=== PATIENT | female | born 1970 | race Caucasian/White ===

== ENCOUNTER → 2017-06-28 | Outpatient (CLI) | payer OTHER ==
[~2017-06-28] MED LIST: BUPR150T8 PO; LISI-170 PO
[2017-06-28 16:18] LABS: HEMATOCRIT 40.5 % (34.6-47.8); HEMOGLOBIN 13.6 g/dL (11.7-16.4); WHITE BLOOD COUNT 9.6 x10^3/uL (3.4-10)
[2017-06-28 16:23] LABS: ASPARTATE AMINO TRANSFERASE 14 U/L (15-37); BLOOD UREA NITROGEN 10 mg/dL (7-18)
[2017-06-28 16:43] LABS: HIV 1&2 ANTIBODY SCREEN Nonreactive (Nonreactive); HIV-1 p24 ANTIGEN Nonreactive (Nonreactive)
== END | disposition home or self-care (01) ==
LOC: STAR 15:04
PROVIDERS: ATTEND Orthopaedic Surgery
DX: Z01.818 Encounter for other preprocedural examination (principal); Q65.89 Other specified congenital deformities of hip
CPT/HCPCS: 36415; 80053; 83036; 85025; 85610; 85730; 86703; 87081; 87147; 87899; 93005; G0435

== ENCOUNTER 2017-07-03 05:24 | Inpatient (IN) | payer OTHER ==
[~2017-07-03] VITALS: Ht 160 cm; Wt 95.2 kg
[2017-07-03] MEDS ORDERED: LACTATED RINGERS 1,000 ML IV SCH (06:09)
[2017-07-03] MEDS ORDERED: VANCOMYCIN PER PHARMACY MC STA (06:18)
[2017-07-03 06:21] LABS: HCG UR LOT HCG706132
[2017-07-03 06:23] LABS: HCG UR OBC PASS
[2017-07-03] MEDS ORDERED: GABAPENTIN 300 MG CAPSULE ONE (06:26)
[2017-07-03] MEDS ORDERED: ACETAMINOPHEN 500 MG TABLET ONE (06:26)
[2017-07-03] MEDS ORDERED: GABAPENTIN 300 MG CAPSULE PO ONE (06:30)
[2017-07-03] MEDS ORDERED: ACETAMINOPHEN 500 MG TABLET PO ONE (06:30)
[2017-07-03] MEDS ORDERED: VANCOMYCIN 1,400 MG in SODIUM CHLORIDE 0.9% 250 ML IV ONE (06:30)
[2017-07-03] MEDS ORDERED: KETOROLAC 60 MG/2 ML ONE ×2 (06:41→06:46)
[2017-07-03] MEDS ORDERED: TRANEXAMIC ACID 100 MG/ML, 10ML ONE ×4 (06:41)
[2017-07-03] MEDS ORDERED: ROPIvacaine/PF 0.2%, 20 ML ONE ×2 (06:42→06:46)
[2017-07-03] MEDS ORDERED: EPINEPHRINE 1 MG/ML, 1ML ONE ×2 (06:42→06:46)
[2017-07-03] MEDS ORDERED: SODIUM CHLORIDE 0.9% 0 ML ONE (06:42)
[2017-07-03] MEDS ORDERED: OxyconTIN ER 10 MG TAB.ER ONE (06:42)
[2017-07-03] MEDS ORDERED: SODIUM CHLORIDE 0.9% 100 ML ONE (06:46)
[2017-07-03 06:49] VITALS: BP 143/91
[2017-07-03] MEDS ORDERED: OxyconTIN ER 10 MG TAB.ER PO ONE (07:00)
[2017-07-03] MEDS ORDERED: MIDAZOLAM 1 MG/ML, 2ML ONE (07:21)
[2017-07-03] MEDS ORDERED: FENTANYL PF 100 MCG/2ML ONE ×2 (07:22)
[2017-07-03] MEDS ORDERED: HYDROmorphone 1 MG/ML, 1ML IV PRN ×2 (07:30→08:30)
[2017-07-03] MEDS ORDERED: ALUMINUM/MAG/SIMETHICONE 30 ML UDC PO PRN (07:30)
[2017-07-03] MEDS ORDERED: DIAZEPAM 5 MG TABLET PO PRN (07:30)
[2017-07-03] MEDS ORDERED: DIPHENHYDRAMINE 25 MG CAPSULE PO PRN (07:30)
[2017-07-03] MEDS ORDERED: SENNA/DOCUSATE TABLET PO PRN (07:30)
[2017-07-03] MEDS ORDERED: ONDANSETRON 2MG/ML, 2ML IV PRN (07:30)
[2017-07-03] MEDS ORDERED: ACETAMINOPHEN 325 MG TABLET PO PRN (07:30)
[2017-07-03] MEDS ORDERED: MAGNESIUM HYDROXIDE 8%, 30ML UDC PO PRN (07:30)
[2017-07-03] MEDS ORDERED: OXYcodone IR 5MG TABLET PO PRN (07:30)
[2017-07-03] MEDS ORDERED: ONDANSETRON 4 MG TABLET PO PRN (07:30)
[2017-07-03] MEDS ORDERED: SCOPOLAMINE PATCH, 1.5MG PATCH.TD72 TD ONE ×2 (07:32→07:58)
[2017-07-03] MEDS ORDERED: ONDANSETRON 2MG/ML, 2ML ONE (07:34)
[2017-07-03] MEDS ORDERED: DEXAMETHASONE 4 MG/ML, 1ML ONE (07:34)
[2017-07-03] MEDS ORDERED: NEOSTIGMINE 1 MG/ML, 10ML ONE (07:34)
[2017-07-03] MEDS ORDERED: PROPOFOL 10 MG/ML, 20ML ONE (07:34)
[2017-07-03] MEDS ORDERED: CEFAZOLIN 1,000 MG ONE (07:34)
[2017-07-03] MEDS ORDERED: ROCURONIUM 10 MG/ML,10ML ONE (07:34)
[2017-07-03] MEDS ORDERED: GLYCOPYRROLATE 0.4 MG/2 ML, 2ML ONE (07:34)
[2017-07-03] MEDS ORDERED: HYDROmorphone 2 MG/ML, 1ML ONE (08:08)
[2017-07-03] MEDS ORDERED: OXYcodone 5 MG/5 ML ORAL.SOL UDC PO PRN (08:30)
[2017-07-03] MEDS ORDERED: ALBUTEROL SULFATE 2.5 MG/3 ML NPPB PRN (08:30)
[2017-07-03] MEDS ORDERED: DIAZEPAM 5 MG/ML, 2ML IVPush PRN (08:30)
[2017-07-03] MEDS ORDERED: hydrALAzine 20 MG/ML, 1ML IV PRN (08:30)
[2017-07-03] MEDS ORDERED: MIDAZOLAM 1 MG/ML, 2ML IV PRN (08:30)
[2017-07-03] MEDS ORDERED: HYDROcodone/APAP 7.5-325MG/15ML UDC PO PRN (08:30)
[2017-07-03] MEDS ORDERED: FENTANYL PF 100 MCG/2ML IV PRN (08:30)
[2017-07-03] MEDS ORDERED: ONDANSETRON 2MG/ML, 2ML IVPush PRN (08:30)
[2017-07-03] MEDS ORDERED: EPHEDRINE 50 MG/ML, 1ML IVPush PRN (08:30)
[2017-07-03] MEDS ORDERED: LABETALOL 5MG/ML, 20ML IV PRN (08:30)
[2017-07-03] MEDS ORDERED: METOPROLOL 1 MG/ML, 5ML IV PRN (08:30)
[2017-07-03] MEDS ORDERED: PROMETHAZINE 25 MG/ML, 1ML IV PRN (08:30)
[2017-07-03] MEDS ORDERED: MEPERIDINE/PF 25MG/0.5ML IVPush PRN (08:30)
[2017-07-03] MEDS ORDERED: TRANEXAMIC ACID 1,000 MG in SODIUM CHLORIDE 0.9% 100 ML IVPB ONE (09:30)
[2017-07-03] MEDS ORDERED: OXYcodone 5 MG/5 ML ORAL.SOL UDC ONE (10:41)
[2017-07-03 11:00] VITALS: BP 110/68
[2017-07-03] MEDS ORDERED: D5%-0.45NACL+KCL 20MEQ 1,000 ML IV SCH (11:30)
[2017-07-03] MEDS ORDERED: TAMSULOSIN 0.4 MG CAP.ER.24H PO SCH (11:30)
[2017-07-03] MEDS ORDERED: DOCUSATE 100 MG CAPSULE PO SCH (11:30)
[2017-07-03] MEDS ORDERED: FLU VACC QS2017-18 (36MOS+) UP/PF 0.5 ML IM-VACC ONE (12:00)
[2017-07-03 13:07] VITALS: BP 113/77
[2017-07-03] MEDS ORDERED: CEFAZOLIN PMX 1GM/50ML 50 ML IVPB SCH (14:00)
[2017-07-03 17:14] VITALS: BP 108/70
[2017-07-03] MEDS ORDERED: ASPI-621 PO (17:19)
[2017-07-03] MEDS ORDERED: DOCU-131 PO (17:20)
[2017-07-03] MEDS ORDERED: ONDA4TAB7 PO (17:21)
[2017-07-03] MEDS ORDERED: TRAM50TA2 PO (17:23)
[2017-07-03] MEDS ORDERED: CELE100C PO (17:24)
[2017-07-03] MEDS ORDERED: DIAZ5TAB PO (17:25)
[2017-07-03] MEDS ORDERED: OXYC5CAP2 PO (18:00)
[2017-07-03] MEDS ORDERED: ASPIRIN 81 MG TABLET EC PO SCH (18:00)
[2017-07-03] MEDS ORDERED: LISINOPRIL 20 MG TABLET PO SCH (21:00)
[2017-07-03] MEDS ORDERED: BUPROPION SR 150 MG TABLET PO SCH (21:00)
[2017-07-04] MEDS ORDERED: DEXAMETHASONE 4 MG/ML, 1ML IVPush SCH (06:00)
[2017-07-04] MEDS ORDERED: KETOROLAC 30 MG/1 ML IV SCH (12:00)
== END 2017-07-03 18:00 | disposition home or self-care (01) | DRG 470 ==
LOC: ORIP 05:24 → 4NOR 10:53
PROVIDERS: ADMIT Orthopaedic Surgery; ATTEND Orthopaedic Surgery
PROC: 0SR90JZ Replacement of Right Hip Joint with Synthetic Substitute, Open Approach (ICD-10-PCS; principal; 2017-07-03 07:30)
DX: M16.11 Unilateral primary osteoarthritis, right hip (principal); Z23 Encounter for immunization
CPT/HCPCS: 36415; 72170; 81025; 86850; 86900; 90686; C1713; J0171; J0690; J1100; J1170; J1885; J2250; J2405; J2704; J2710; J2795; J3010; J3370; C1776; J7050; J7120